=== PATIENT | female | born 1990 | race African-American/Black ===

== ENCOUNTER 2025-06-21 17:12 | Emergency (ER) | payer OTHER ==
[~2025-06-21] VITALS: Ht 160 cm; Wt 97.5 kg
[2025-06-22 05:21] VITALS: BP 121/70; TEMP 97.9; O2SAT 99
== END 2025-06-22 05:23 | disposition left against medical advice (07) ==
LOC: ER 17:12
DX: F32.A Depression, unspecified (principal); Z53.21 Procedure and treatment not carried out due to patient leaving prior to being seen by health care provider